=== PATIENT | female | born 2000 | race Caucasian/White ===

== ENCOUNTER 2022-04-24 18:32 | Emergency (ER) | payer MEDICAID ==
[~2022-04-24] VITALS: Ht 152.4 cm; Wt 52.2 kg
--- NOTE | 2022-04-24 18:33 | NUR ---
BIBA TO BED #4
--- NOTE | 2022-04-24 18:55 | NUR ---
ASSUMED PATIENT CARE, NURSING ASSESSMENT COMPLETED. SEEN AND EVALUATED BY DR PERALTA, MSE COMPLETED.
[2022-04-24 18:58] LABS: BASOPHILS % (AUTO) 0.5 % (0.0-2.0); EOSINOPHILS # (AUTO) 0.1 K/uL (0-0.4); EOSINOPHILS % (AUTO) 0.9 % (0.0-4.0); HEMATOCRIT 37.7 % (36-48); HEMOGLOBIN 12.5 g/dL (12.0-16.0); LYMPHOCYTES % (AUTO) 27.7 % (20.5-51.1); MEAN CORPUSCULAR HEMOGLOBIN 29 pg (27-31); MEAN CORPUSCULAR HGB CONC 33 g/dL (33-37); MEAN CORPUSCULAR VOLUME 89.2 fL (80-94); MONOCYTES # (AUTO) 0.5 K/uL (0.8-1.0); MONOCYTES % (AUTO) 6.3 % (1.7-9.3); NEUTROPHILS # (AUTO) 4.7 K/uL (1.8-7.7); NEUTROPHILS % (AUTO) 64.6 % (42.2-75.2); PLATELET COUNT (AUTO) 184 K/uL (140-450); RED BLOOD CELL COUNT(AUTO) 4.23 MIL/uL (4.20-5.40); RED CELL DISTRIBUTION WIDTH 12.6 % (11.6-13.7); WHITE BLOOD COUNT (AUTO) 7.3 K/uL (4.5-11.0)
[2022-04-24 19:11] VITALS: BP 105/72
[2022-04-24] MEDS ORDERED: LORazepam 0.5 MG TAB PO ONE (19:20)
[2022-04-24 19:22] LABS: ANION GAP 2.9 (8-16); CARBON DIOXIDE 25.5 mmol/L (21-32); CREATININE 0.8 mg/dL (0.6-1.3); POTASSIUM 3.4 mmol/L (3.5-5.1)
--- NOTE | 2022-04-24 19:32 | NUR ---
PT AWAKE AND ALERT X4. NT SEZURE NOTED AT THIS TIME. WAITIING FOR DR GLEZ
[2022-04-24 19:58] VITALS: BP 105/72
--- NOTE | 2022-04-24 19:59 | NUR ---
Patient discharged with v/s stable. Written and verbal after care instructions given and explained. Patient verbalized understanding. Ambulatory with steady gait. All questions addressed prior to discharge. Advised to follow up with PMD. PT LEFT WITH HER BELONGINGS.
== END 2022-04-24 19:58 | disposition home or self-care (01) ==
LOC: MED 18:32
DX: G40.909 Epilepsy, unspecified, not intractable, without status epilepticus (principal)
CPT/HCPCS: 36415; 71045; 80048; 81025; 85025; 93005; 99285; Q0092